=== PATIENT | female | born 1985 | race Caucasian/White ===

== ENCOUNTER 2016-11-28 20:03 | Inpatient (IN) | payer BC ==
[2016-11-28] MEDS ORDERED: Lidocaine 1% 50 ML MDV INJECT ONE (23:31)
[2016-11-28] MEDS ORDERED: Sodium Chloride 0.9% 10 ML Syringe FLUSH PRN (23:31)
[2016-11-28] MEDS ORDERED: Nalbuphine 20 MG/1 ML Amp IVPUSH PRN (23:31)
[2016-11-28] MEDS ORDERED: Oxytocin/Lactated Ringers 10 UNIT/1,000 ML BAG IV SCH (23:45)
[2016-11-28] MEDS ORDERED: Lactated Ringers 1,000 ML IV SCH (23:45)
--- NOTE | 2016-11-29 00:10 | PCM.LDHP ---
[id number] of Service: 11/28/16 Admit Problem/Dx: Admission Diagnosis/Problem Admission Diagnosis/Problem 11/28/16 23:37 Intrauterine at 38-5/7 weeks gestation - early labor. - History of Present Illness Introduction:: History of present Illness: Rhonda is a 31-year-old 4 para 3-0-0-3 female who presents to Labor & Delivery with onset of labor. Contractions are becoming more regular and increasingly painful. She reports good activity. TANISHA is 12/07/16 based on LMP of 03/02/2016 and confirmed via early ultrasound on 05/14/2016. She plans to breast feed baby. Influenza and Tdap vaccinations are up to date. 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 LMP 03/02/2016. She has had three full-term normal spontaneous vaginal deliveries prior to this without complications, all here at [facility] in [place]. 05/17/2009 - 7lbs 2oz M; 07/24/2011 - 6lbs 12oz M; 03/22/2014 - 7lbs 8oz M. History of regular menses occurring every 30 days. Menarche at age 12. She was not taking control at the time of conception. No history of STIs. Laboratory Testing: Blood type A positive, antibody negative. Rubella immune, VDRL/RPR nonreactive, hepatitis B surface antigen negative, HIV negative. Chlamydia and gonorrhea PCR negative. Group B strep screen negative. Medications: vitamins Allergies: No known drug allergies. Past Medical History: Negative. Past Surgical History: None. Family History: - Mother - history of two miscarriages; alive and well - Father - alive and well - 3 brothers, 1 sister - alive and well - MGM - Parkinson's Disease, alive - MGF - , "broken heart" - PGF - , rheumatic fever, heart disease - PGM - throat cancer, smoker; rheumatoid arthritis Social History: Patient lives here in [place] with her , Reggie, and her three boys. She denies use of tobacco products, alcohol, and recreational drugs. Review of Systems: General: No fever or chills. Head: No headaches, changes in vision. Cardiac: No murmurs, palpitations. Respiratory: No shortness of breath or wheezing. GI: Good appetite. No recent nausea/vomiting. : Urinary changes related to . Musculoskeletal: No muscle aches or joint stiffness. Physical Exam: General: Well-developed, well-nourished pleasant female in some pain due to contractions. Vitals: BP 117/74, pulse 81, respiratory rate 16, oxygen saturations 98% on room -air. Weight 199.2lbs on last clinic evaluation, 11/28/2016. HR baseline 130s with good variability and accelerations. Skin: Warm, dry without rashes or lesions. HEENT: Atraumatic, normocephalic. EOM intact. Oral mucosa pink and moist without exudate. Breast: exam deferred. Cardiovascular: Regular rate and rhythm without murmur. Respiratory: Lungs clear to auscultation bilaterally. Abdomen: Soft, nontender. Gravid uterus appropriate for dates. Musculoskeletal: No edema. Cervical exam: not done at this time as patient was just checked by the nurse and was told to be 4 cm dilated. - Related Data Allergies/Adverse Reactions: Allergies Allergy/AdvReac Type Severity Reaction Status Date / Time No Known Allergies Allergy Verified 03/22/14 18:50 Home Medications: Home Meds Vit/Iron Fumarate/FA [ Tablet] 1 tab PO DAILY 03/22/14 [History ] Past Medical History - Past Health History Medical/Surgical History: Denies Medical/Surgical History Social & Family History - Tobacco Use Smoking Status *Q: Never Smoker Second Hand Smoke Exposure: No - Recreational Drug Use Recreational Drug Use: No H&P Review of Systems - Review of Systems: Review Of Systems: See Below L&D Exam - Exam Exam: See Below - Vital Signs Vital Signs: Last Vital Signs Temp 37.2 C 11/28/16 21:57 Pulse 81 11/28/16 21:57 Resp 16 11/28/16 21:57 BP 117/74 11/28/16 21:57 Pulse Ox 98 11/28/16 21:57 Weight: 68.039 kg Assessment/Plan Comment:: Assessment: 1. Intrauterine at 38-5/7 weeks gestation, onset of labor - early labor. 2. GBS negative. 3. Plans to have a natural labor but is open to an epidural. 4. Patient plans to nurse. 5. Tdap received 09/24/16. Plan: 1. Anticipate normal spontaneous vaginal delivery. 2. IV pitocin if no significant contractions in 2-3 hours. 3. Encourage breast feeding behaviors and diet. 4. Epidural if patient desires. 5. Routine preoperative labs. <Juve Nguyen - Last Filed: 11/29/16 04:44> L&D History of Present Illness - General Admit Problem/Dx: Patient Status Order with Admit Dx/Problem 11/29/16 00:31 Patient Status [ADT] Routine Admission Diagnosis/Problem Admission Diagnosis/Problem Normal labor H&P Review of Systems - Review of Systems: Review Of Systems: See Below L&D Exam - Exam Exam: See Below - Vital Signs Vital Signs: Last Vital Signs Temp 37.2 C 11/28/16 21:57 Pulse 81 11/28/16 21:57 Resp 16 11/28/16 21:57 BP 117/74 11/28/16 21:57 Pulse Ox 98 11/28/16 21:57 - Patient Data Lab Results last 24 hrs: Laboratory Results - last 24 hr 11/29/16 11/29/16 Range/Units 00:15 00:15 WBC 14.51 H (3.98-10.04) K/mm3 RBC 4.34 (3.98-5.22) M/mm3 Hgb 12.7 (11.2-15.7) gm/L Hct 39.2 (34.1-44.9) % MCV 90.3 (79.4-94.8) fl MCH 29.3 (25.6-32.2) pg MCHC 32.4 (32.2-35.5) g/dl RDW Std Deviation 44.5 (36.4-46.3) fL Plt Count 117 L (182-369) K/mm3 MPV 12.9 H (9.4-12.3) fl Blood Type A POSITIVE Gel Antibody Screen Negative Result Diagrams: 11/29/16 00:15 Problem List Initiated/Reviewed/Updated: Yes Orders Last 24hrs: Active Orders 24 hr Category Date Time Status Patient Status [ADT] Routine ADT 11/29/16 00:31 Active Activity as Tolerated [RC] PFP Care 11/28/16 23:31 Active Communication Order [RC] ASDIRECTED Care 11/28/16 23:31 Active Heart Tones [RC] ASDIRECTED Care 11/28/16 23:31 Active Notify Provider [RC] PFP Care 11/28/16 23:31 Active Notify Provider [RC] PRN Care 11/28/16 23:31 Active Peripheral IV Care [RC] . DIRECTED Care 11/28/16 23:31 Active Vital Signs [RC] PER UNIT ROUTINE Care 11/28/16 23:31 Active Clear Liquid Diet [DIET] Diet 11/28/16 Breakfast Active Lactated Ringers [Ringers, Lactated] 1,000 ml Med 11/28/16 23:45 Active IV ASDIRECTED Nalbuphine [Nubain] Med 11/28/16 23:31 Active 10 mg IVPUSH Q2H PRN Oxytocin/Lactated Ringers [Pitocin in LR 10 Units/1,000 Med 11/29/16 00:30 Active ML] 10 unit in 1,000 ml IV ASDIRECTED Sodium Chloride 0.9% [Saline Flush] Med 11/28/16 23:31 Active 10 ml FLUSH ASDIRECTED PRN Electronic Heart Tones Ext w TOCO [WOMSER] Oth 11/28/16 23:31 Ordered Routine Electronic Heart Tones Internal [WOMSER] Per Unit Oth 11/28/16 23:31 Ordered Routine Peripheral IV Insertion Adult [OM.PC] Routine Oth 11/28/16 23:31 Ordered Resuscitation Status Routine Resus Stat 11/28/16 23:31 Ordered Medication Orders Lactated Ringer's (Ringers, Lactated) 1,000 mls @ 100 mls/hr IV ASDIRECTED DANO Oxytocin/Lactated Ringer's (Pitocin In Lr 10 Units/1,000 Ml) 10 unit in 1,000 mls @ 500 mls/hr IV ASDIRECTED DANO PRN Reason: Protocol Nalbuphine HCl (Nubain) 10 mg IVPUSH Q2H PRN PRN Reason: Pain (moderate 4-6) Last Admin: 11/29/16 01:15 Dose: 5 mg Sodium Chloride (Saline Flush) 10 ml FLUSH ASDIRECTED PRN PRN Reason: Keep Vein Open
[2016-11-29] MEDS ORDERED: Oxytocin/Lactated Ringers 10 UNIT/1,000 ML BAG IV SCH (00:30)
[2016-11-29] MEDS ORDERED: Lidocaine 1% 50 ML MDV ONE (04:08)
[2016-11-29] MEDS ORDERED: Witch Hazel Medicated Pads 100/Jar TOP PRN (04:51)
[2016-11-29] MEDS ORDERED: Benzocaine/Menthol 20%-0.5% Spray 56 GM Canister TOP PRN (04:51)
[2016-11-29] MEDS ORDERED: Acetaminophen 325 MG Tab PO PRN (04:51)
[2016-11-29] MEDS ORDERED: Lanolin 100% Cream 7 GM Tube TOP PRN (04:51)
[2016-11-29] MEDS ORDERED: Docusate Sodium 100 MG Cap PO PRN (04:51)
[2016-11-29] MEDS: Ibuprofen 600 MG Tab PO PRN ×4 (05:00→21:07)
--- NOTE | 2016-11-29 05:33 | PCM.SN ---
- Free Text/Narrative Note: Rhonda is a 31-year-old 4 now para 4-0-0-4 female who was admitted for spontaneous onset of labor. She was having regular contractions, 5- 10 minutes apart that were getting painful. An epidural was not desired. Artificial rupture of membranes was performed and she progressed to complete after about 5 hours. She pushed for three contractions and delivered a viable, perez, 3860 g (8 pounds, 8 ounces) male , 20 inches in length over an intact perineum in SUKHI position at 0423 hours. Apgars were 8 at one minute, 2 off for color, and 9 at 5 minutes, 1 off for color. Baby was placed on mom's abdomen and cord was noted to have 3 vessels. Cord clamped x2 and cut by dad. Cord blood was obtained. Placenta was delivered at 0431 hours in Estrella presentation. It was intact, without lacerations. Pitocin was started immediately via IV to facilitate uterine tone. Estimated blood los was 100 cc. Cord was wrapped around the shoulder and was easily reduced over the infant's body as it delivered. Patient plans to breast feed.
[2016-11-29] MEDS: Acetaminophen/oxyCODONE 325-5 MG Tab PO PRN ×2 (13:57→17:54)
[2016-11-30] MEDS: Ibuprofen 600 MG Tab PO PRN ×2 (03:11→09:43)
--- NOTE | 2016-11-30 05:27 | PCM.DCSUM1 ---
Discharge Summary - Hospital Course Free Text/Narrative:: Rhonda is a 31-year-old 4 now para 4-0-0-4 female who was admitted at 39+ weeks gestational age for spontaneous onset of labor. She was having regular contractions, 5-10 minutes apart that were getting painful. An epidural was not desired. Artificial rupture of membranes was performed and she progressed to complete after about 5 hours. She pushed for three contractions and delivered a viable, perez, 3860 g (8 pounds, 8 ounces) male , 20 inches in length over an intact perineum in SUKHI position at 0423 hours. Apgars were 8 at one minute, 2 off for color, and 9 at 5 minutes, 1 off for color. Baby was placed on mom's abdomen and cord was noted to have 3 vessels. Cord clamped x2 and cut by dad. Cord blood was obtained. Placenta was delivered at 0431 hours in Estrella presentation. It was intact, without lacerations. Pitocin was started immediately via IV to facilitate uterine tone. Estimated blood loss was 100 cc. Cord was wrapped around the shoulder and was easily reduced over the infant's body as it delivered. Patient plans to breast feed. patient has done very well. She is nursing without problems, ambulating well and has minimal lochia. Pain has been well controlled. She is desiring discharge home. - Discharge Data Discharge Date: 11/30/16 Discharge Disposition: Home, Self-Care 01 Condition: Good - Patient Instructions Diet: Regular Diet as Tolerated (Nursing diet was increased calories and calcium as directed) Activity: As Tolerated (No intercourse or tampons until seen back.) Driving: May Drive Today Showering/Bathing: May Shower (May take a bath) Notify Provider of: Fever, Increased Pain, Swelling and Redness, Nausea and/or Vomiting - Discharge Plan Home Medications: Home Meds Vit/Iron Fumarate/FA [ Tablet] 1 tab PO DAILY 03/22/14 [History ] Ibuprofen [IJD: Ibuprofen] 600 mg PO Q4H PRN #30 tablet 11/30/16 [Rx] Referrals: Juve Nguyen MD [Primary Care Provider] - (Return to clinic-Dr. Nguyen-6 weeks-[facility].) - Discharge Summary/Plan Comment DC Time >30 min.: No Discharge Summary/Plan Comment: Discharge instructions: 1. Discharge home 2. Regular, high-fiber, nursing diet with increased calcium and calories as directed 3. Precautions given concern increased pain, bleeding, temperature, signs/ symptoms of DVT/PE. 4. Medications per home medication was entered, discussed with given to the patient 5. Return to clinic-Dr. Nguyen-6 weeks-[facility]. Diagnosis: 39 week intrauterine -delivered Condition: Good - Patient Data Vitals - Most Recent: Last Vital Signs Temp 36.6 C 11/29/16 21:09 Pulse 58 L 11/29/16 21:09 Resp 14 11/29/16 21:09 BP 125/71 11/29/16 21:09 Pulse Ox 99 11/29/16 21:09 Weight - Most Recent: 68.039 kg I&O - Last 24 hours: Intake & Output 11/29/16 11/29/16 11/30/16 14:59 22:59 06:59 Intake Total 300 Balance 300 Med Orders - Current: Current Medications Acetaminophen (Tylenol) 650 mg PO Q4H PRN PRN Reason: mild pain or fever Benzocaine/Menthol (Dermoplast Pain Relief [place]) 0 gm TOP ASDIRECTED PRN PRN Reason: Perineal Comfort Measure Last Admin: 11/29/16 05:01 Dose: 1 canister Docusate Sodium (Colace) 100 mg PO BID PRN PRN Reason: Constipation Emollient Ointment (Lansinoh Hpa) 0 gm TOP ASDIRECTED PRN PRN Reason: Sore Nipples Ibuprofen (Motrin) 600 mg PO Q4H PRN PRN Reason: Mild pain or fever Last Admin: 11/30/16 03:11 Dose: 600 mg Oxycodone/Acetaminophen (Percocet 325-5 Mg) 2 tab PO Q4H PRN PRN Reason: Pain Last Admin: 11/29/16 17:54 Dose: 2 tab Witch Christina (Tucks) 1 pad TOP ASDIRECTED PRN PRN Reason: Hemorrhoid pain Last Admin: 11/29/16 05:01 Dose: 1 tub Discontinued Medications Lactated Ringer's (Ringers, Lactated) 1,000 mls @ 100 mls/hr IV ASDIRECTED DANO Oxytocin/Lactated Ringer's (Pitocin In Lr 10 Units/1,000 Ml) 10 unit in 1,000 mls @ 500 mls/hr IV ASDIRECTED DANO PRN Reason: Protocol Last Admin: 11/29/16 04:25 Dose: 500 mls/hr Lidocaine HCl (Xylocaine 1%) 50 ml INJECT ONETIME ONE Stop: 11/28/16 23:32 Last Admin: 11/29/16 12:13 Dose: Not Given Lidocaine HCl (Xylocaine 1%) Confirm Administered Dose 50 ml .ROUTE .STK-MED ONE Stop: 11/29/16 04:09 Last Admin: 11/29/16 12:12 Dose: Not Given Nalbuphine HCl (Nubain) 10 mg IVPUSH Q2H PRN PRN Reason: Pain (moderate 4-6) Last Admin: 11/29/16 01:15 Dose: 5 mg Sodium Chloride (Saline Flush) 10 ml FLUSH ASDIRECTED PRN PRN Reason: Keep Vein Open *Q Meaningful Use (DIS) - VTE *Q VTE Criteria *Q: - Stroke *Q Stroke Criteria *Q: - AMI *Q AMI Criteria *Q:
[2016-11-30 05:42] VITALS: BP 105/75
== END 2016-11-30 11:30 | disposition home or self-care (01) | DRG 560 ==
LOC: JD.OBCHECK 20:03 → JD.OB 20:06 → JD.OBCHECK 11-29 00:31 → OBSVTOIN 11-29 04:23 → JD.OB 11-29 04:23
PROVIDERS: ADMIT Obstetrics & Gynecology; ATTEND Obstetrics & Gynecology
PROC: 10E0XZZ Delivery of Products of Conception, External Approach (ICD-10-PCS; principal; 2016-11-29)
PROC: 10907ZC Drainage of Amniotic Fluid, Therapeutic from Products of Conception, Via Natural or Artificial Opening (ICD-10-PCS; 2016-11-29)
DX: O69.81X0 Labor and delivery complicated by cord around neck, without compression, not applicable or unspecified (principal); Z3A.39 39 weeks gestation of pregnancy; Z37.0 Single live birth
CPT/HCPCS: 36415; 85027; 86850; 86900; 86901; A9270-GY; J2300; J2590

== ENCOUNTER 2020-06-07 00:47 | Inpatient (IN) | payer BC ==
[2020-06-07] MEDS ORDERED: Lactated Ringers 1,000 ML ONE ×2 (02:43→07:13)
[2020-06-07] MEDS ORDERED: Nalbuphine 10 MG/ML Syringe IVPUSH PRN (02:45)
[2020-06-07] MEDS ORDERED: Sodium Chloride 0.9% 10 ML Syringe FLUSH PRN (02:45)
[2020-06-07] MEDS ORDERED: Ondansetron 4 MG/2 ML SDV IVPUSH PRN ×2 (02:45→08:32)
[2020-06-07] MEDS ORDERED: Oxytocin/Lactated Ringers 10 UNIT/1,000 ML BAG IV SCH ×2 (02:45)
[2020-06-07] MEDS ORDERED: Lactated Ringers 1,000 ML IV SCH (02:45)
--- NOTE | 2020-06-07 03:15 | PCM.LDHP ---
L&D History of Present Illness - General Date of Service: 06/07/20 Admit Problem/Dx: Patient Status Order with Admit Dx/Problem 06/07/20 00:57 Patient Status [ADT] Routine 06/07/20 02:45 Patient Status [ADT] Routine Admission Diagnosis/Problem Admission Diagnosis/Problem 06/07/20 03:04 Rhonda is a 34-year-old 5 para 4-0-0-4 white female who was admitted in early a.m. on 06/07/2020 with contractions, bloody show and progressive cervical dilation consistent with labor.. She is presently at 38-0/7 weeks gestational age with an TANISHA of 06/21/2020. Source of Information: Patient History Limitations: Reports: No Limitations - History of Present Illness Introduction:: Rhonda is a 34-year-old 5 para 4-0-0-4 white female who was admitted in early a.m. on 06/07/2020 with contractions, bloody show and progressive cervical dilation consistent with labor.. She is presently at 38-0/7 weeks gestational age with an TANISHA of 06/21/2020. Labor started approximately 2 hours ago and has progressed to the point where she is uncomfortable. Short time after admission patient had a gush of fluid and increase in vaginal bleeding. This appears to be aggressive bloody show and has slowed down. Contractions are every 3 minutes, moderate intensity. Cervix is 4 cm, 90% effaced, -3 station, vertex pr esentation, soft, anterior. heart tones are reassuring. 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 Patient had menarche at age 12. Cycles monthly. No control at the time of conception. LMP relatively certain on 09/15/2019. Previous obstetric history includes the followin. Male infant born [birth year]2009 at 39 weeks gestational age after 10 hours of labor7 pounds 2 ouncesNSVDchild's name is Toñito. 2. Male born 07/24/2011 at 40 weeks gestational age after 3 hours of labor6 pound 12 ouncesNSVDchild's name is Regino. 3. Male born 03/22/2014 at 38 weeks gestational age after 5 hours of labor7 pounds 8 ouncesNSVDchild's name is Tad Viramontes 4. Male infant born 11/29/2016 at 38-6/7 weeks gestational age after 7 hours of labor8 pounds 8 Ashley's name is Amanuel Lacy Denies any abnormal Pap smears, also denies any STIs. course: Patient was seen for her first visit on 12/07/2019 at 11 weeks and 6 days. She was seen on a regular basis and made good fundal height growth. Her weight gain was from 160 pounds to 200.8 pounds for a 40 pound increase. She is group B strep negative. She has a history of bacterial vaginosis and that was treated. Her EPDS score on 02/22/2020 was 7/30. Flu shot was given on 05/20/2020. She had her Tdap on 04/04/2020. She has a history of mild soft thrombocytopenia which has been stable throughout the . Laboratory testing in shows blood to be a positive with a negative antibody screen. First labs showed a hemoglobin that was 14.9 and platelets of 219,000. Her rubella titer showed immunity. RPR was nonreactive. Urine culture showed Gardnerella vaginalis which was then treated. Her hepatitis B surface antigen and HIV assays were both negative as were her chlamydia and gonorrhea test. TSH was 1.36 milliunits/mL. Second trimester labs showed a hemoglobin of 13.0 and platelets 145,000. Her 1 hour GTT was 85. Her group B strep screen was negative. Allergies: None Medications: 1. vitamins daily 2. Colace as needed for constipation Past medical history: . x4. 2. Mild thrombocytopeniastable Surgical history: Unremarkable Family history: Mother with history of 2 miscarriages. Maternal grandmother and paternal grandmother had babies that shortly after . Mother and father are alive and well. 3 brothers and 1 sister alive and well. Maternal grandmother alive with Parkinson's. Maternal grandfather secondary to a broken heart. Paternal grandfather , had rheumatic fever and heart disease. Paternal grandmother secondary to throat cancerwas a smoker. Anesthesia, bleeding or blood clotting problems noted in the family. Social history: Patient is , lives in [place]. is Reggie. 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 She does not use any significant also alcohol, drugs or tobacco. Review of systems: In general patient has no complaints. She is jr. She has had a fair amount of bloody show. Skin: Negative Lungs: No infectious symptoms or shortness of breath Cardiovascular: No chest pain or exercise intolerance Breasts: See changes GI: Negative : Body habitus changes associated with Musculoskeletal: Negative Neurological: Negative Physical exam: In general the patient is well-developed, well-nourished, pleasant female of stated age in no acute distress. Skin is warm dry without lesions. HEENT, neck and back within normal limits. Lungs are clear with good breath sounds in all lung storey. Breast exam deferred having been done at first visit and found to be normal is not repeated at this time. Patient does plan to breast-feed. Cardiovascular exam shows regular and rhythm without murmurs. Abdomen is gravid with last fundal height clinic at 40 cm. Genital per digital exam shows a moderate amount of bloody show. Appears the patient has ruptured membranes as bag mccurdy no longer palpated as it was earlier per nurse evaluation in my evaluation clinic earlier today. Dilation, effacement as described above Extremities and neurological exam are grossly within normal limits. - Related Data Allergies/Adverse Reactions: Allergies Allergy/AdvReac Type Severity Reaction Status Date / Time No Known Allergies Allergy Verified 10/29/19 14:59 Home Medications: Home Meds Vit/Iron Fum/Folic AC [ Tablet] 1 tab PO DAILY 03/22/14 [History] Doxylamine Succinate/Vit B6 [Bonjesta ER 20-20 mg Tablet] 1 each PO 10/29/19 [History] Ondansetron [Zofran ODT] 4 mg PO Q4HR PRN #30 tab.dis 10/29/19 [Rx] Past Medical History - Past Health History Medical/Surgical History: Denies Medical/Surgical History HEENT History: Reports: Other (See Below) Other HEENT History: wear glasses Gastrointestinal History: Reports: Chronic Constipation, Other (See Below) Other Gastrointestinal History: occassionally constipation 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 History: Reports: - Infectious Disease History Infectious Disease History: Reports: Chicken Pox Social & Family History - Family History Family Medical History: Noncontributory - Caffeine Use Caffeine Use: Reports: Coffee Caffeine Use Comment: one per day H&P Review of Systems - Review of Systems: Review Of Systems: See Below L&D Exam - Exam Exam: See Below - Vital Signs Weight: 92.079 kg Problem List Initiated/Reviewed/Updated: Yes Orders Last 24hrs: Active Orders 24 hr Category Date Time Status Patient Status [ADT] Routine ADT 06/07/20 02:45 Active Activity as Tolerated [RC] PFP Care 06/07/20 02:45 Active Communication Order [RC] ASDIRECTED Care 06/07/20 02:45 Active Heart Tones [RC] ASDIRECTED Care 06/07/20 02:46 Active Non Stress Test [RC] PER UNIT ROUTINE Care 06/07/20 00:57 Active Notify Provider [RC] PFP Care 06/07/20 02:45 Active Notify Provider [RC] PRN Care 06/07/20 02:45 Active Peripheral IV Care [RC] . DIRECTED Care 06/07/20 02:46 Active Vital Signs [RC] PER UNIT ROUTINE Care 06/07/20 00:57 Active Regular Diet [DIET] Diet 06/07/20 Breakfast Active CBC WITH AUTO DIFF [HEME] Stat Lab 06/07/20 02:54 Received CORONAVIRUS COVID-19 LAZ [MOLEC] Stat Lab 06/07/20 02:48 Ordered RAPID PLASMA REAGIN,RPR [CHEM] Routine Lab 06/07/20 02:54 Received TYPE AND SCREEN [BBK] Stat Lab 06/07/20 02:54 Received Lactated Ringers [Ringers, Lactated] 1,000 ml Med 06/07/20 02:45 Active IV ASDIRECTED Nalbuphine [Nubain] Med 06/07/20 02:45 Active 10 mg IVPUSH Q2H PRN Ondansetron [Zofran] Med 06/07/20 02:45 Active 4 mg IVPUSH Q4H PRN Oxytocin/Lactated Ringers [Pitocin in LR 10 Units/1,000 Med 06/07/20 02:45 Active ML] 10 unit in 1,000 ml IV .CONTINUOUS Oxytocin/Lactated Ringers [Pitocin in LR 10 Units/1,000 Med 06/07/20 02:45 Active ML] 10 unit in 1,000 ml IV TITRATE Sodium Chloride 0.9% [Saline Flush] Med 06/07/20 02:45 Active 10 ml FLUSH ASDIRECTED PRN Electronic Heart Tones Ext w TOCO [WOMSER] Oth 06/07/20 02:45 Ordered Routine Electronic Heart Tones Internal [WOMSER] Per Unit Oth 06/07/20 02:45 Ordered Routine Peripheral IV Insertion Adult [OM.PC] Routine Oth 06/07/20 02:45 Ordered Resuscitation Status Routine Resus Stat 06/07/20 00:57 Ordered Medication Orders Lactated Ringer's (Ringers, Lactated) 1,000 mls @ 100 mls/hr IV ASDIRECTED DANO Oxytocin/Lactated Ringer's (Pitocin In Lr 10 Units/1,000 Ml) 10 unit in 1,000 mls @ 12 mls/hr IV TITRATE DANO; Protocol Oxytocin/Lactated Ringer's (Pitocin In Lr 10 Units/1,000 Ml) 10 unit in 1,000 mls @ 100 mls/hr IV .CONTINUOUS DANO Nalbuphine HCl (Nubain) 10 mg IVPUSH Q2H PRN PRN Reason: Pain Ondansetron HCl (Zofran) 4 mg IVPUSH Q4H PRN PRN Reason: Nausea/Vomiting Sodium Chloride (Saline Flush) 10 ml FLUSH ASDIRECTED PRN PRN Reason: Keep Vein Open Assessment/Plan Comment:: 1. 38-0/7-week IUP in active labor. Aggressive bloody show seems to be lessening at this time. SROM after admission to the hospital 2. Group B strep negative 3. Patient plans to breast-feed 4. Patient desires natural labor 5. Tdap given during 6. Rubella titer shows immunity. 7. Immunizations including hepatitis B up-to-date 1998 and meningococcal up-to-date 2011. Plan: 1. Close monitoring of heart tones and contractions along with cervical change and bloody show. 2. Anticipate normal spontaneous vaginal delivery 3. CBC, COVID testing and RPR today. Will assess what the platelet count is specifically. 4. Support breast-feeding plan 5. Routine labor care.
[2020-06-07] MEDS ORDERED: ceFAZolin 2 GM in Premix Bag 1 BAG IV ONE (06:44)
[2020-06-07] MEDS ORDERED: Azithromycin 500 MG in Sodium Chloride 0.9% 250 ML IV ONE (06:44)
[2020-06-07] MEDS ORDERED: Citric Acid/Sodium Citrate Solution 30 ML Cup PO ONE (06:44)
[2020-06-07] MEDS ORDERED: Metoclopramide 10 MG/2 ML SDV IVPUSH ONE (06:44)
--- NOTE | 2020-06-07 06:46 | PCM.SN.2 ---
- Free Text/Narrative Note: Progress note: I was called to see the patient because of questionable presentation of the baby. The patient was noted to be approximately 8 cm by the nursing staff. Presenting part felt to not be a head. Ultrasound was performed and shows a baby in a breech presentation appears to be margie breech with the back to the patient's left. heart tones are reassuring. Contractions approximately every 3 to 4 minutes and moderate in intensity. Patient doing well without any anesthesia. Decision made to proceed with primary section. The procedure, risk, benefits, alternatives of care including attempt at vaginal with its potential risks, benefits and follow-up are discussed in detail with the patient and her . They appear to understand and wish to proceed. Consent will be signed. Assessment: 1. 38-0/7-week intrauterine , active labor with advanced cervical dilation now with confirmed margie breech presentation by ultrasound. Primary section discussed with patient as well as attempt at vaginal breech delivery. Patient wishes to proceed with . Plan: 1. Primary low uterine segment transverse section through Pfannenstiel skin incision under spinal block. Procedure, risk, benefits discussed with patient. Consent has been signed. 2. Type and screen 3. Ancef 2 g IV preop for infection prophylaxis 4. SCDs for DVT prophylaxis.
[2020-06-07] MEDS ORDERED: Bupivacaine 0.5% 30 ML SDV ONE (06:48)
[2020-06-07] MEDS ORDERED: Citric Acid/Sodium Citrate Solution 30 ML Cup ONE (06:51)
[2020-06-07] MEDS ORDERED: Metoclopramide 10 MG/2 ML SDV ONE (06:51)
[2020-06-07] MEDS ORDERED: Oxytocin/Lactated Ringers 20 UNIT/1,000 ML BAG IV SCH (07:00)
[2020-06-07] MEDS ORDERED: ceFAZolin 1 GM Vial ONE (07:13)
[2020-06-07] MEDS ORDERED: Morphine PF 10 MG/10 ML SDV ONE (07:13)
[2020-06-07] MEDS ORDERED: Ketorolac 30 MG/ML SDV ONE (07:13)
[2020-06-07] MEDS ORDERED: Ondansetron 4 MG/2 ML SDV ONE (07:13)
[2020-06-07] MEDS ORDERED: Oxytocin 10 Units/1 ML SDV ONE (07:13)
--- NOTE | 2020-06-07 07:19 | PCM.PREANE ---
Preanesthetic Assessment - Procedure Proposed Procedure: C Section - Anesthesia/Transfusion/Family Hx Anesthesia History: No Prior Anesthesia Family History of Anesthesia Reaction: No Transfusion History: No Prior Transfusion(s) Type of Transfusion Reactions: Reports: Unknown Intubation History: Unknown - Review of Systems General: No Symptoms Pulmonary: No Symptoms Cardiovascular: No Symptoms Gastrointestinal: No Symptoms Neurological: No Symptoms Other: Reports: None - Physical Assessment NPO Status Date: 06/07/20 NPO Status Time: 18:00 Vital Signs: Last Vital Signs Temp 36.7 C 06/07/20 01:03 Pulse 75 06/07/20 01:03 Resp 16 06/07/20 01:03 BP 118/82 06/07/20 01:03 Pulse Ox 99 06/07/20 01:03 Height: 1.65 m Weight: 92.079 kg ASA Class: 2 Mental Status: Alert & Oriented x3 Thyro-Mental Finger Breadths: 3 Mouth Opening Finger Breadths: 5 ROM/Head Extension: Full Lungs: Clear to Auscultation, Normal Respiratory Effort Cardiovascular: Regular Rate, Regular Rhythm - Lab Values: Laboratory Last Values WBC 13.90 K/mm3 (3.98-10.04) H 06/07/20 02:54 RBC 4.24 M/mm3 (3.98-5.22) 06/07/20 02:54 Hgb 13.3 gm/dl (11.2-15.7) 06/07/20 02:54 Hct 39.5 % (34.1-44.9) 06/07/20 02:54 MCV 93.2 fl (79.4-94.8) D 06/07/20 02:54 MCH 31.4 pg (25.6-32.2) 06/07/20 02:54 MCHC 33.7 g/dl (32.2-35.5) 06/07/20 02:54 RDW Std Deviation 44.4 fL (36.4-46.3) 06/07/20 02:54 Plt Count 117 K/mm3 (182-369) L 06/07/20 02:54 MPV 12.9 fl (9.4-12.3) H 06/07/20 02:54 Neut % (Auto) 77.0 % (34.0-71.1) H 06/07/20 02:54 Lymph % (Auto) 13.7 % (19.3-51.7) L 06/07/20 02:54 [place] % (Auto) 7.6 % (4.7-12.5) 06/07/20 02:54 Eos % (Auto) 1.2 (0.7-5.8) 06/07/20 02:54 Baso % (Auto) 0.1 % (0.1-1.2) 06/07/20 02:54 Neut # (Auto) 10.70 K/mm3 (1.56-6.13) H 06/07/20 02:54 Lymph # (Auto) 1.91 K/mm3 (1.18-3.74) 06/07/20 02:54 [place] # (Auto) 1.06 K/mm3 (0.24-0.36) H 06/07/20 02:54 Eos # (Auto) 0.17 K/mm3 (0.04-0.36) 06/07/20 02:54 Baso # (Auto) 0.01 K/mm3 (0.01-0.08) 06/07/20 02:54 SARS-CoV-2 RNA (LAZ) Negative (NEGATIVE) 06/07/20 04:15 Blood Type A POSITIVE 06/07/20 02:54 Gel Antibody Screen Negative 06/07/20 02:54 - Allergies Allergies/Adverse Reactions: Allergies Allergy/AdvReac Type Severity Reaction Status Date / Time No Known Allergies Allergy Verified 06/07/20 04:47 - Blood Blood Available: No - Anesthesia Plan Pre-Op Medication Ordered: Antacids - Acknowledgements Anesthesia Type Planned: Spinal Pt an Appropriate Candidate for the Planned Anesthesia: Yes Alternatives and Risks of Anesthesia Discussed w Pt/Guardian: Yes Pt/Guardian Understands and Agrees with Anesthesia Plan: Yes PreAnesthesia Questionnaire - Past Health History Medical/Surgical History: Denies Medical/Surgical History HEENT History: Reports: Other (See Below) Other HEENT History: wear glasses Gastrointestinal History: Reports: Chronic Constipation, Other (See Below) Other Gastrointestinal History: occassionally constipation 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: - Infectious Disease History Infectious Disease History: Reports: Chicken Pox - Past Surgical History HEENT Surgical History: Reports: None GI Surgical History: Reports: None Dermatological Surgical History: Reports: None - SUBSTANCE USE Smoking Status *Q: Never Smoker Recreational Drug Use History: No - HOME MEDS Home Medications: Home Meds Vit/Iron Fum/Folic AC [ Tablet] 1 tab PO DAILY 03/22/14 [History] Docusate Sodium [Colace] 1 tab PO ASDIRECTED PRN 06/07/20 [History] - CURRENT (IN HOUSE) MEDS Current Meds: Current Medications Lactated Ringer's (Ringers, Lactated) 1,000 mls @ 100 mls/hr IV ASDIRECTED DANO Last Admin: 06/07/20 06:59 Dose: 100 mls/hr Documented by: Oxytocin/Lactated Ringer's (Pitocin In Lr 10 Units/1,000 Ml) 10 unit in 1,000 mls @ 12 mls/hr IV TITRATE DANO; Protocol Oxytocin/Lactated Ringer's (Pitocin In Lr 10 Units/1,000 Ml) 10 unit in 1,000 mls @ 100 mls/hr IV .CONTINUOUS DANO Azithromycin 500 mg/ Sodium (Chloride) 250 mls @ 250 mls/hr IV ONETIME ONE Stop: 06/07/20 07:43 Oxytocin/Lactated Ringer's (Pitocin In Lr 20 Units/1,000 Ml) 20 unit in 1,000 mls @ 500 mls/hr IV TITRATE DANO; Protocol Nalbuphine HCl (Nubain) 10 mg IVPUSH Q2H PRN PRN Reason: Pain Last Admin: 06/07/20 05:16 Dose: 10 mg Documented by: Ondansetron HCl (Zofran) 4 mg IVPUSH Q4H PRN PRN Reason: Nausea/Vomiting Sodium Chloride (Saline Flush) 10 ml FLUSH ASDIRECTED PRN PRN Reason: Keep Vein Open Discontinued Medications Bupivacaine HCl (Marcaine 0.5%) Confirm Administered Dose 30 ml .ROUTE .STK-MED ONE Stop: 06/07/20 06:49 Citric Acid/Sodium Citrate (Bicitra Solution) 30 ml PO ONETIME ONE Stop: 06/07/20 06:45 Last Admin: 06/07/20 06:53 Dose: 30 ml Documented by: Citric Acid/Sodium Citrate (Bicitra Solution) Confirm Administered Dose 30 ml .ROUTE .STK-MED ONE Stop: 06/07/20 06:52 Last Admin: 06/07/20 06:53 Dose: Not Given Documented by: Lactated Ringer's (Ringers, Lactated) Confirm Administered Dose 1,000 mls @ as directed .ROUTE .STK-MED ONE Stop: 06/07/20 02:44 Last Admin: 06/07/20 02:45 Dose: 100 mls/hr Documented by: Cefazolin Sodium/Dextrose 2 gm (/ Premix) 50 mls @ 100 mls/hr IV ONETIME ONE Stop: 06/07/20 07:13 Metoclopramide HCl (Reglan) 10 mg IVPUSH ONETIME ONE Stop: 06/07/20 06:45 Last Admin: 06/07/20 06:53 Dose: 10 mg Documented by: Metoclopramide HCl (Reglan) Confirm Administered Dose 10 mg .ROUTE .STK-MED ONE Stop: 06/07/20 06:52 Last Admin: 06/07/20 06:53 Dose: Not Given Documented by:
--- NOTE | 2020-06-07 08:30 | PCM.OPNOTE ---
- General Post-Op/Procedure Note Date of Surgery/Procedure: 06/07/20 Operative Procedure(s): Primary low uterine segment transverse section through Pfannenstiel skin incision under spinal block Findings: The baby was found to be in a margie breech presentation. Amniotic fluid is clear. Placenta was normal. The uterus, tubes and ovaries were normal for term . Pre Op Diagnosis: 1. 38-0/7-week intrauterine , active labor, spontaneous rupture membranes. 2. Margie breech presentation Post-Op Diagnosis: Same with a viable, 7 pound 15 ounce female infant with Apgars of 8 and 9 at 0753 hrs. on 06/07/2020 Other Anesthesia Type: Marcaine 0.5% - 20 cc totallocal Primary Surgeon: Juve Nguyen Secondary Surgeon: Polly Perkins Anesthesia Provider: Evi Rm Siebel Administrator: Cheyanne Ramos Reason Siebel Administrator Was Necessary: Retraction, assistance, patient safety, quality of care. Fluid Replacement, Intraop: 1,000 Output, Urine Amount: 50 EBL in mLs: 500 Drain/Tube Comments:: Indwelling bladder catheter Complications: None Condition: Good Free Text/Narrative:: Surgery duration: 26 minutes Surgery duration: Procedure: The patient is appropriately consented. Patient was transferred to the room and placed in a sitting position. Spinal anesthesia was administered. After confirmation of adequate anesthesia patient was placed in a supine position with a wedge under her right side to facilitate left lateral positioning. The patient was prepped and draped in usual fashion after Villaseñor catheter was already placed . The anesthetic was checked and found to be adequate. 20 mL of Marcaine 0.5% was injected locally in the Pfannenstiel incision site. The Pfannenstiel skin incision was then made and carried down through skin, subcutaneous and fascial layers. The fascia was then undermined superiorly and inferiorly to allow for adequate operating room. The recti muscles midline and preperitoneal fat was bluntly dissected. Peritoneal cavity was entered longitudinally. The vesicouterine peritoneum was then incised transversely and bladder flap was developed. Myometrium was incised transversely to the level of the amniotic sac. This incision was extended bilaterally in a blunt fashion. The amniotic sac was then ruptured resulting in clear amniotic fluid. A hand is placed in the low uterine segment and the baby's reach was brought forth through the incision. The baby was completely delivered using fundal pressure and complete breech extraction technique in a routine fashion. The nose and mouth were bulb suctioned. Baby's cord was clamped x2 cut and baby was handed off to attending uplands division director Dr Rodriguez. Placenta was expressed after cord blood was obtained. Uterus was then exteriorized to allow for easier closure. The cervix was assessed and found to be dilated adequately to allow egress of blood. The uterus was closed in 2 layers. The first layer a running locked suture of 0 Monocryl, the second layer a running locked vertical mattress suture of 0 Monocryl. Beemsk-[id number] suture was placed at and incision to control 1 bleeder. Hemostasis confirmed at this time. Sponge instrument needle counts are correct. The uterus was returned to the abdominal cavity and lateral gutters were cleared of blood. Once again sponge needle counts are correct. The anterior abdominal wall was closed with a #1 PDS suture from angle to angle. The subcutaneous area was found to be free of any bleeders. Skin was closed with a running subcuticular stitch of 3-0 Monocryl in a vertical mattress suture fashion using a Edgar needle. Prineo mesh/glue was then applied to further approximate the incision. It should be noted that patient received 2 g of Ancef preoperatively for infection prophylaxis and had Pitocin infused after delivery of the placenta to facilitate uterine contraction. She also had sequential compression stockings in place for DVT prophylaxis. Patient was discharged from the operating room in satisfactory condition.
[2020-06-07] MEDS ORDERED: diphenhydrAMINE 50 MG/ML SDV IVPUSH PRN ×2 (08:32→10:11)
--- NOTE | 2020-06-07 08:32 | PCM.POSTAN ---
POST ANESTHESIA ASSESSMENT - MENTAL STATUS Mental Status: Alert - VITAL SIGNS Vital Signs: 101/54 96 sats 86 13 97 f Last Vital Signs Temp 36.7 C 06/07/20 01:03 Pulse 75 06/07/20 01:03 Resp 16 06/07/20 01:03 BP 118/82 06/07/20 01:03 Pulse Ox 99 06/07/20 01:03 - RESPIRATORY Respiratory Status: Respiratory Rate WNL, Airway Patent, O2 Saturation Stable - CARDIOVASCULAR CV Status: Pulse Rate WNL, Blood Pressure Stable - GASTROINTESTINAL GI Status: No Symptoms - PAIN Pain Score: 0 - POST OP HYDRATION Hydration Status: Adequate & Stable
[2020-06-07] MEDS ORDERED: Ondansetron 4 MG/2 ML SDV IV PRN (10:11)
[2020-06-07] MEDS ORDERED: Acetaminophen/oxyCODONE 325-5 MG Tab PO PRN (10:11)
[2020-06-07] MEDS ORDERED: Dextrose 5%-Lactated Ringers 1,000 ML IV SCH (10:11)
[2020-06-07] MEDS ORDERED: Naloxone 0.4 MG/ML SDV IVPUSH PRN (10:11)
[2020-06-07] MEDS ORDERED: Docusate Sodium 100 MG Cap PO PRN (10:11)
[2020-06-07] MEDS ORDERED: ePHEDrine 50 MG/ML SDV IVPUSH PRN (10:11)
[2020-06-07] MEDS: Ibuprofen 800 MG Tab PO SCH ×2 (14:40→22:11)
[2020-06-07] MEDS: Simethicone 80 MG Tab.Chew PO SCH ×3 (14:41→20:11)
[2020-06-08] MEDS: Ibuprofen 800 MG Tab PO SCH ×3 (06:03→20:40)
--- NOTE | 2020-06-08 06:40 | PCM.SN.2 ---
- Free Text/Narrative Note: note: Postoperative day #1 Patient is doing well in the period. Minimal lochia, voiding well, ambulated without problems. Nursing without concerns. Patient is afebrile, vital signs are stable Abdomen is flat, soft, uterus is below the umbilicus and is firm and nontender. Legs are nontender. Hemoglobin is 10.7, platelets are 107. Assessment: recovery going well. Plan: DC IV, indwelling catheter and increase activity. Routine care. Patient be discharged home within the next 24-48 hours.
--- NOTE | 2020-06-08 08:02 | PCM48HPAN ---
Post Anesthesia Note - EVALUATION WITHIN 48HRS OF ANESTHETIC Vital Signs in Normal Range: Yes Patient Participated in Evaluation: Yes Respiratory Function Stable: Yes Airway Patent: Yes Cardiovascular Function Stable: Yes Hydration Status Stable: Yes Pain Control Satisfactory: Yes Nausea and Vomiting Control Satisfactory: Yes Mental Status Recovered: Yes Vital Signs: Last Vital Signs Temp 98.1 F 06/08/20 03:52 Pulse 75 06/08/20 03:52 Resp 16 06/08/20 03:52 BP 96/65 06/08/20 03:52 Pulse Ox 98 06/08/20 03:52
[2020-06-08] MEDS: Simethicone 80 MG Tab.Chew PO SCH ×4 (10:43→20:40)
[2020-06-08] MEDS: Acetaminophen/oxyCODONE 325-5 MG Tab PO PRN ×2 (10:43→15:27)
[2020-06-09] MEDS: Acetaminophen/oxyCODONE 325-5 MG Tab PO PRN ×2 (03:39→08:52)
[2020-06-09 04:23] VITALS: BP 125/78; PULSE 57
--- NOTE | 2020-06-09 05:49 | PCM.DCSUM1 ---
Discharge Summary - Hospital Course Free Text/Narrative:: Rhonda 5 now para 5-0-0-5 white female who was admitted on 06/09/2020 at 38-0/7 weeks gestational age in active labor. During the course of labor patient was found to have a margie breech presenting infant and decision was made to proceed to a primary low uterine segment transverse section through Pfannenstiel skin incision under spinal block. Patient was taken to surgery on the a.m. of 06/07/2020. She delivered a viable, perez, 7 pound 15 ounce female infant with Apgars of 8 and 9 at 0753 hrs. on 06/07/2020. Procedure went well and patient was admitted to the unit. patient is done very well. She is nursing without problems. Pain control is good. She has minimal lochia, is voiding well and ambulating without concerns. She is desiring discharge home. Condition: Good - Discharge Data Discharge Date: 06/09/20 Discharge Disposition: Home, Self-Care 01 Condition: Good - Referral to Home Health Primary Care Physician: Juve Nguyen MD - Patient Summary/Data Operative Procedure(s) Performed: Primary low uterine segment transverse section through Pfannenstiel skin incision under spinal block - Patient Instructions Diet: Regular Diet as Tolerated (Nursing diet with increased calories and calcium as recommended) Activity: As Tolerated (No intercourse or tampons until bleeding resolves. No lifting greater than 15 pounds or driving a car x1 week.) Driving: Do Not Drive Showering/Bathing: May Shower Wound/Incision Care: Keep Operative Site/Wound Site Clean and Dry Notify Provider of: Fever, Increased Pain, Swelling and Redness, Drainage, Nausea and/or Vomiting - Discharge Plan Home Medications: Home Meds Vit/Iron Fum/Folic AC [ Tablet] 1 tab PO DAILY 03/22/14 [History] Docusate Sodium [Colace] 1 tab PO ASDIRECTED PRN 06/07/20 [History] Acetaminophen/oxyCODONE [Percocet 325-5 MG] 2 tab PO Q4H PRN tablet 06/09/20 [Rx] Ibuprofen [Motrin] 800 mg PO Q8H tablet 06/09/20 [Rx] Referrals: Juve Nguyen MD [Primary Care Provider] - (Return to clinicDr. Nguyen2 weeks.) - Discharge Summary/Plan Comment DC Time >30 min.: No Discharge Summary/Plan Comment: Discharge instructions: 1. Discharge home 2. Diet, activity and follow-up discussed with patient. Recommend nursing diet with increased calories and calcium. 3. Precautions given concern increased pain, bleeding, temperature, signs/symptoms of DVT/PE. 4. Medications per home medication was printed, discussed with and given to the patient. 5. Return to clinic-Dr. Nguyen[facility] in 2 weeks. Diagnosis: Term -delivered Condition: Good - Patient Data Vitals - Most Recent: Last Vital Signs Temp 36.8 C 06/09/20 04:19 Pulse 57 L 06/09/20 04:19 Resp 14 06/09/20 04:19 BP 125/78 06/09/20 04:19 Pulse Ox 97 06/09/20 04:19 Weight - Most Recent: 92.079 kg I&O - Last 24 hours: Intake & Output 06/08/20 06/08/20 06/09/20 14:59 22:59 06:59 Intake Total 4720 3000 Output Total 700 Balance 4020 3000 Lab Results - Last 24 hrs: Laboratory Results - last 24 hr 06/08/20 Range/Units 05:25 WBC 10.49 H (3.98-10.04) K/mm3 RBC 3.44 L (3.98-5.22) M/mm3 Hgb 10.7 L D (11.2-15.7) gm/dl Hct 32.7 L (34.1-44.9) % MCV 95.1 H (79.4-94.8) fl MCH 31.1 (25.6-32.2) pg MCHC 32.7 (32.2-35.5) g/dl RDW Std Deviation 44.6 (36.4-46.3) fL Plt Count 107 L (182-369) K/mm3 MPV 12.7 H (9.4-12.3) fl Neut % (Auto) 72.2 H (34.0-71.1) % Lymph % (Auto) 16.7 L (19.3-51.7) % [place] % (Auto) 9.2 (4.7-12.5) % Eos % (Auto) 1.5 (0.7-5.8) Baso % (Auto) 0.1 (0.1-1.2) % Neut # (Auto) 7.57 H (1.56-6.13) K/mm3 Lymph # (Auto) 1.75 (1.18-3.74) K/mm3 [place] # (Auto) 0.97 H (0.24-0.36) K/mm3 Eos # (Auto) 0.16 (0.04-0.36) K/mm3 Baso # (Auto) 0.01 (0.01-0.08) K/mm3 Manual Slide Review Normal smear Med Orders - Current: Current Medications Diphenhydramine HCl (Benadryl) 25 mg IVPUSH Q6H PRN PRN Reason: Itching or Nausea Docusate Sodium (Colace) 100 mg PO Q12H PRN PRN Reason: Constipation Ephedrine Sulfate (Ephedrine Sulfate) 5 mg IVPUSH SEECOMMENT PRN PRN Reason: Other Ibuprofen (Motrin) 800 mg PO Q8H [facility] Last Admin: 06/08/20 20:40 Dose: 800 mg Documented by: Naloxone HCl (Narcan) 0.1 mg IVPUSH SEECOMMENT PRN PRN Reason: Respiratory Depression Ondansetron HCl (Zofran) 4 mg IV Q4H PRN PRN Reason: Nausea/Vomiting Oxycodone/Acetaminophen (Percocet 325-5 Mg) 1 tab PO Q4H PRN PRN Reason: Pain (moderate 4-6) Last Admin: 06/09/20 03:39 Dose: 1 tab Documented by: Oxycodone/Acetaminophen (Percocet 325-5 Mg) 2 tab PO Q4H PRN PRN Reason: Pain (severe 7-10) Last Admin: 06/08/20 20:42 Dose: 2 tab Documented by: Simethicone (Simethicone) 80 mg PO QID [facility] Last Admin: 06/08/20 20:40 Dose: 80 mg Documented by: Discontinued Medications Bupivacaine HCl (Marcaine 0.5%) Confirm Administered Dose 30 ml .ROUTE .STK-MED ONE Stop: 06/07/20 06:49 Last Admin: 06/07/20 07:48 Dose: 20 ml Documented by: Cefazolin Sodium (Ancef) Confirm Administered Dose 2 gm .ROUTE .STK-MED ONE Stop: 06/07/20 07:14 Citric Acid/Sodium Citrate (Bicitra Solution) 30 ml PO ONETIME ONE Stop: 06/07/20 06:45 Last Admin: 06/07/20 06:53 Dose: 30 ml Documented by: Citric Acid/Sodium Citrate (Bicitra Solution) Confirm Administered Dose 30 ml .ROUTE .STK-MED ONE Stop: 06/07/20 06:52 Last Admin: 06/07/20 06:53 Dose: Not Given Documented by: Diphenhydramine HCl (Benadryl) 25 mg IVPUSH Q6H PRN PRN Reason: Pruritis Lactated Ringer's (Ringers, Lactated) Confirm Administered Dose 1,000 mls @ as directed .ROUTE .[facility]-MED ONE Stop: 06/07/20 02:44 Last Admin: 06/07/20 02:45 Dose: 100 mls/hr Documented by: Lactated Ringer's (Ringers, Lactated) 1,000 mls @ 100 mls/hr IV ASDIRECTED DANO Last Admin: 06/07/20 06:59 Dose: 100 mls/hr Documented by: Oxytocin/Lactated Ringer's (Pitocin In Lr 10 Units/1,000 Ml) 10 unit in 1,000 mls @ 12 mls/hr IV TITRATE DANO; Protocol Oxytocin/Lactated Ringer's (Pitocin In Lr 10 Units/1,000 Ml) 10 unit in 1,000 mls @ 100 mls/hr IV .CONTINUOUS DANO Cefazolin Sodium/Dextrose 2 gm (/ Premix) 50 mls @ 100 mls/hr IV ONETIME ONE Stop: 06/07/20 07:13 Azithromycin 500 mg/ Sodium (Chloride) 250 mls @ 250 mls/hr IV ONETIME ONE Stop: 06/07/20 07:43 Oxytocin/Lactated Ringer's (Pitocin In Lr 20 Units/1,000 Ml) 20 unit in 1,000 mls @ 500 mls/hr IV TITRATE DANO; Protocol Lactated Ringer's (Ringers, Lactated) Confirm Administered Dose 1,000 mls @ as directed .ROUTE .STK-MED ONE Stop: 06/07/20 07:14 Dextrose/Lactated Ringer's (Dextrose 5%-Lactated Ringers) 1,000 mls @ 125 mls/hr IV ASDIRECTED DANO Stop: 06/07/20 18:10 Last Admin: 06/07/20 10:22 Dose: 125 mls/hr Documented by: Ketorolac Tromethamine (Toradol) Confirm Administered Dose 30 mg .ROUTE .STK-MED ONE Stop: 06/07/20 07:14 Metoclopramide HCl (Reglan) 10 mg IVPUSH ONETIME ONE Stop: 06/07/20 06:45 Last Admin: 06/07/20 06:53 Dose: 10 mg Documented by: Metoclopramide HCl (Reglan) Confirm Administered Dose 10 mg .ROUTE .STK-MED ONE Stop: 06/07/20 06:52 Last Admin: 06/07/20 06:53 Dose: Not Given Documented by: Miscellaneous Medication (Phenylephrine 1 Mg/10 Ml-Ns) Confirm Administered Dose 1 mg .ROUTE .STK-MED ONE Stop: 06/07/20 07:14 Morphine Sulfate (Duramorph Pf) Confirm Administered Dose 10 mg .ROUTE .STK-MED ONE Stop: 06/07/20 07:14 Nalbuphine HCl (Nubain) 10 mg IVPUSH Q2H PRN PRN Reason: Pain Last Admin: 06/07/20 05:16 Dose: 10 mg Documented by: Ondansetron HCl (Zofran) 4 mg IVPUSH Q4H PRN PRN Reason: Nausea/Vomiting Ondansetron HCl (Zofran) Confirm Administered Dose 4 mg .ROUTE .STK-MED ONE Stop: 06/07/20 07:14 Ondansetron HCl (Zofran) 4 mg IVPUSH ONETIME PRN PRN Reason: Nausea/Vomiting Oxytocin (Pitocin) Confirm Administered Dose 20 unit .ROUTE .STK-MED ONE Stop: 06/07/20 07:14 Sodium Chloride (Saline Flush) 10 ml FLUSH ASDIRECTED PRN PRN Reason: Keep Vein Open
[2020-06-09] MEDS: Ibuprofen 800 MG Tab PO SCH ×2 (06:38→06:46)
[2020-06-09] MEDS: Simethicone 80 MG Tab.Chew PO SCH (06:40)
== END 2020-06-09 09:10 | disposition home or self-care (01) | DRG 540 ==
LOC: JD.OB 00:47 → JD.OBCHECK 00:47 → JD.OB 02:45 → OBSVTOIN 07:53 → JD.OB 07:54
PROVIDERS: ADMIT Obstetrics & Gynecology; ATTEND Obstetrics & Gynecology
PROC: 10D00Z1 Extraction of Products of Conception, Low, Open Approach (ICD-10-PCS; principal; 2020-06-07)
DX: O32.1XX0 Maternal care for breech presentation, not applicable or unspecified (principal); Z3A.38 38 weeks gestation of pregnancy; Z37.0 Single live birth; O99.62 Diseases of the digestive system complicating childbirth; K59.09 Other constipation; Z20.828 Contact with and (suspected) exposure to other viral communicable diseases
CPT/HCPCS: 01961; 36415; 59025; 85025; 86592; 86850; 86900; 86901; 94762; A9270-GY; J0690; J1885; J2270; J2300; J2370; J2405; J2590; J2765; J3490; J7120; J7121; U0002

== ENCOUNTER 2022-03-27 08:15 | Day surgery (SDC) | payer BC ==
[~2022-03-27 08:15] MED LIST: Bupivacaine 0.5% 30 ML SDV ONE; Lactated Ringers 1,000 ML IV SCH; Lidocaine 1%/Sod Bicarbonate in NS 8.4% 1 ML Syringe IDERM PRN; Sodium Chloride 0.9% 10 ML Syringe FLUSH PRN; Sodium Chloride 0.9% 10 ML Syringe FLUSH SCH
[2022-03-27] MEDS ORDERED: fentaNYL 250 MCG/5 ML SDV ONE (08:24)
[2022-03-27] MEDS ORDERED: Midazolam 1 MG/ML 2 ML SDV ONE (08:24)
[2022-03-27] MEDS ORDERED: Scopolamine 1.5 MG Transdermal Patch TOP ONE (08:30)
[2022-03-27] MEDS ORDERED: Ondansetron 4 MG/2 ML SDV ONE (09:10)
[2022-03-27] MEDS ORDERED: Ketorolac 30 MG/ML SDV ONE (09:10)
[2022-03-27] MEDS ORDERED: Rocuronium 50 MG/5 ML Vial ONE (09:10)
[2022-03-27] MEDS ORDERED: Lidocaine 1% 5 ML VIAL ONE (09:10)
[2022-03-27] MEDS ORDERED: Dexamethasone 4 MG/ML 5 ML MDV ONE (09:10)
[2022-03-27] MEDS ORDERED: diphenhydrAMINE 50 MG/ML SDV ONE (09:10)
[2022-03-27] MEDS ORDERED: Propofol 200 MG/20 ML SDV ONE ×2 (09:14)
[2022-03-27] MEDS ORDERED: ceFAZolin 2 GM Vial ONE (10:16)
[2022-03-27] MEDS ORDERED: Sugammadex Sodium 200 MG/2 ML VIAL ONE (10:32)
[2022-03-27] MEDS ORDERED: Lactated Ringers 1,000 ML ONE (10:35)
[2022-03-27] MEDS ORDERED: HYDROmorphone 0.5 MG/0.5 ML Syringe IVPUSH PRN (11:02)
[2022-03-27] MEDS ORDERED: fentaNYL 100 MCG/2 ML SDV IVPUSH PRN (11:02)
[2022-03-27 16:20] VITALS: BP 101/55; PULSE 45
== END 2022-03-27 13:12 | disposition home or self-care (01) ==
LOC: JD.SDS 08:15
PROVIDERS: ATTEND Obstetrics & Gynecology
DX: N94.10 Unspecified dyspareunia (principal); N92.6 Irregular menstruation, unspecified; N81.89 Other female genital prolapse; N73.6 Female pelvic peritoneal adhesions (postinfective); Z98.818 Other dental procedure status
CPT/HCPCS: 49320; 81025; A9270; J0690; J1100; J1200; J1885; J2250; J2405; J2704; J3010; J3490; J7120; 00840